=== PATIENT | male | born 1950 | race Caucasian/White ===

== ENCOUNTER → 2019-10-10 13:10 | Outpatient (CLI) | payer MEDICARE, BC ==
[2012-11-15 13:35] VITALS: BMI 28.8
[~2019-10-10 13:10] MED LIST: ASPIRIN 81 MG E81 MG PO; PLAVIX75 MG PO
== END | disposition home or self-care (01) ==
LOC: D.HCCECHO 13:10
PROVIDERS: ATTEND Internal Medicine Cardiovascular Disease
DX: I25.10 Atherosclerotic heart disease of native coronary artery without angina pectoris (principal)